=== PATIENT | female | born 1970 | race Caucasian/White ===

== ENCOUNTER 2018-05-12 07:36 | Emergency (ER) | payer OTHER ==
[~2018-05-12] VITALS: Ht 175.3 cm; Wt 79.4 kg
[2018-05-12] MEDS ORDERED: IBUPROFEN800 MG PO (07:57)
[2018-05-12] MEDS ORDERED: PREDNISONE20 MG PO (09:21)
== END 2018-05-12 09:34 | disposition home or self-care (01) ==
LOC: ED 07:36
DX: M25.562 Pain in left knee (principal); Z87.891 Personal history of nicotine dependence; Z90.49 Acquired absence of other specified parts of digestive tract; Z79.899 Other long term (current) drug therapy
CPT/HCPCS: 73560; 99283

== ENCOUNTER 2018-05-28 03:26 | Emergency (ER) | payer OTHER ==
[~2018-05-28] VITALS: Ht 175.3 cm; Wt 79.4 kg
[~2018-05-28 03:26] MED LIST: IBUPROFEN800 MG PO; PREDNISONE20 MG PO
--- OUTSIDE RECORDS SUMMARY | 2018-05-28 03:30 | XMS ---
PreManage Notification: PRIYA ALTAMIRANO Security Director Of Loss Prevention Events No recent Security Events currently on file CRITERIA MET - [facility] - 2 Visits in 30 Days CARE PROVIDERS There are no care providers on record at this time. Kailyn has no Care Guidelines for this patient. Lucas V[facility] (12 MO.) [facility] NOTE: Visits indicate total known visits. ED/C VISIT TRACKING (12 MO.) 05/28/2018 03:[address] [facility] [place] TYPE: Emergency COMPLAINT: - L KNEE PAIN/INJURY 05/12/2018 07:[address] [facility] [place] TYPE: Emergency COMPLAINT: - L KNEE PAIN DIAGNOSES: - Other care home (current) drug therapy - Acquired absence of other specified parts of digestive tract - Pain in left knee - Personal history of nicotine dependence INPATIENT VISIT TRACKING (12 MO.) No inpatient visits to display in this time frame [email or web address]
== END 2018-05-28 03:58 | disposition home or self-care (01) ==
LOC: ED 03:26
DX: S83.92XA Sprain of unspecified site of left knee, initial encounter (principal); Z87.891 Personal history of nicotine dependence; Z79.899 Other long term (current) drug therapy; X58.XXXA Exposure to other specified factors, initial encounter
CPT/HCPCS: 96372; 99283-25; J1885

== ENCOUNTER 2022-04-26 11:17 | Emergency (ER) | payer OTHER ==
[~2022-04-26] VITALS: Ht 175.3 cm; Wt 86.2 kg
[~2022-04-26 11:17] MED LIST changes: +DICLOFENAC SODI75 MG PO; +HYDROCODON-ACE1 EA11 PO
[2022-04-26] MEDS ORDERED: HYDROCHLOROTHIA25 MG PO (11:41)
[2022-04-26] MEDS ORDERED: LISINOPRIL20 MG PO (11:41)
[2022-04-26] MEDS ORDERED: DICLOFENAC SOD100 GM TOP (11:41)
[2022-04-26] MEDS ORDERED: DICLOFENAC SOD100 G1 TOP (11:42)
== END 2022-04-26 12:44 | disposition home or self-care (01) ==
LOC: ED 11:17
DX: S83.92XA Sprain of unspecified site of left knee, initial encounter (principal); I10 Essential (primary) hypertension; Z87.891 Personal history of nicotine dependence; Z79.899 Other long term (current) drug therapy; W00.0XXA Fall on same level due to ice and snow, initial encounter
CPT/HCPCS: 73560; 99283-25

== ENCOUNTER 2022-07-20 06:32 | Emergency (ER) | payer OTHER ==
[~2022-07-20] VITALS: Ht 172.7 cm; Wt 94.4 kg
[~2022-07-20 06:32] MED LIST changes: +DICLOFENAC SOD100 G1 TOP; +DICLOFENAC SOD100 GM TOP; +HYDROCHLOROTHIA25 MG PO; +LISINOPRIL20 MG PO
== END 2022-07-20 08:29 | disposition home or self-care (01) ==
LOC: ED 06:32
DX: S83.92XA Sprain of unspecified site of left knee, initial encounter (principal); X58.XXXA Exposure to other specified factors, initial encounter; I10 Essential (primary) hypertension; M19.90 Unspecified osteoarthritis, unspecified site; Z87.891 Personal history of nicotine dependence; Z79.899 Other long term (current) drug therapy
CPT/HCPCS: 73560; 96372; 99283-25; J1885

== ENCOUNTER 2022-12-04 20:37 | Inpatient (IN) | payer OTHER ==
[~2022-12-04] VITALS: Ht 172.7 cm; Wt 93.2 kg
--- OUTSIDE RECORDS SUMMARY | ~2022-12-04 | XMS | Continuity of Care Document ---
Demographics + + + | Address | [address] | | | [place] [address] | + + + | Preferred Language | Unknown | + + + | Marital Status | | + + + | Alevism Affiliation | Unknown | + + + | Race | White | + + + | Ethnic Group | Not or | + + + Author + + + | Author | [facility] | + + + | Organization | [facility] | + + + | Address | [address] | | | [place] [address] | + + + | Phone | | + + + Care Team Providers + + + + | Care Fruit And Vegetable Factory Worker Name | Role | Phone | + + + + Unavailable | Unavailable | + + + + Unavailable | Unavailable | + + + + Unavailable | Unavailable | + + + + Allergies No information. Encounters No information. Functional Status No information. Immunizations No information. Medications + + + + | date | description | facility | + + + + | 2022-04-14 00:00 | IBUPROFEN | [facility] | + + + + | 2022-04-26 00:00 | IBUPROFEN | [facility] | + + + + | 2022-07-20 00:00 | IBUPROFEN | [facility] | + + + + | 2022-04-26 00:00 | HYDROCHLOROTHIAZIDE | [facility] | + + + + | 2022-07-20 00:00 | HYDROCHLOROTHIAZIDE | [facility] | + + + + | 2018-05-12 00:00 | predniSONE | [facility] | + + + + | 2018-05-12 00:00 | predniSONE | [facility] | + + + + | 2022-04-26 00:00 | LISINOPRIL | [facility] | + + + + | 2022-07-20 00:00 | LISINOPRIL | [facility] | + + + + | 2022-04-26 00:00 | Diclofenac Sodium | [facility] | + + + + | 2022-07-20 00:00 | Diclofenac Sodium | [facility] | + + + + | 2022-04-26 00:00 | DICLOFENAC SODIUM | [facility] | + + + + | 2022-07-20 00:00 | DICLOFENAC SODIUM | [facility] | + + + + | 2018-08-15 00:00 | DICLOFENAC SODIUM | [facility] | + + + + | 2018-08-15 00:00 | HYDROCODONE | [facility] | | | BIT/ACETAMINOPHEN | | + + + + Problems + + + + | date | description | facility | + + + + | 2018-05-28 00:00 | Effusion of left knee | [facility] | + + + + | 2018-05-28 00:00 | Effusion of left knee | [facility] | + + + + | 2018-05-28 00:00 | Sprain of left knee | [facility] | + + + + | 2018-05-28 00:00 | Sprain of left knee | [facility] | + + + + | 2022-07-20 00:00 | Sprain of knee | [facility] | + + + + | 2022-10-27 07:37 | LIVER DISEASE, UNSPECIFIED | [facility] | | | | | + + + + | 2022-10-27 07:37 | ABNORMAL LEVELS OF OTHER | [facility] | | | SERUM ENZYMES | | + + + + Procedures No information. Results/Labs No information. Social History No information. Vital Signs + + + +---------+ | date | measurement | value | units | + + + +---------+ | 2022-04-26 00:00 | BMI | 28.1 | kg/m2 | + + + +---------+ | 2022-04-26 00:00 | BP_diastolic | 84 | mmHg | + + + +---------+ | 2022-04-26 00:00 | BP_systolic | 145 | mmHg | + + + +---------+ | 2022-04-26 00:00 | heart_rate | 78 | /min | + + + +---------+ | 2022-04-26 00:00 | height_metric | 175.26 | cm | + + + +---------+ | 2022-04-26 00:00 | height_standard | 69 | in | + + + +---------+ | 2022-04-26 00:00 | o2_saturation | 97 | % | + + + +---------+ | 2022-04-26 00:00 | respiration_rate | 16 | /min | + + + +---------+ | 2022-04-26 00:00 | temperature_metric | 37.5 | C | | | | | | + + + +---------+ | 2022-04-26 00:00 | | 99.5 | F | | | temperature_standar | | | | | d | | | + + + +---------+ | 2022-04-26 00:00 | weight_metric | 86.18 | kg | + + + +---------+ | 2022-04-26 00:00 | weight_standard | 189.99 | lb | + + + +---------+ | 2022-04-26 00:00 | weight_standard | 190 | lb | + + + +---------+ | 2022-07-20 00:00 | BMI | 31.6 | kg/m2 | + + + +---------+ | 2022-07-20 00:00 | BP_diastolic | 76 | mmHg | + + + +---------+ | 2022-07-20 00:00 | BP_systolic | 135 | mmHg | + + + +---------+ | 2022-07-20 00:00 | heart_rate | 76 | /min | + + + +---------+ | 2022-07-20 00:00 | height_metric | 172.72 | cm | + + + +---------+ | 2022-07-20 00:00 | height_standard | 68 | in | + + + +---------+ | 2022-07-20 00:00 | o2_saturation | 99 | % | + + + +---------+ | 2022-07-20 00:00 | respiration_rate | 16 | /min | + + + +---------+ | 2022-07-20 00:00 | temperature_metric | 36.94 | C | | | | | | + + + +---------+ | 2022-07-20 00:00 | | 98.5 | F | | | temperature_standar | | | | | d | | | + + + +---------+ | 2022-07-20 00:00 | weight_metric | 94.4 | kg | + + + +---------+ | 2022-07-20 00:00 | weight_standard | 208.12 | lb | + + + +---------+"
--- OUTSIDE RECORDS SUMMARY | ~2022-12-04 | XMS | Continuity of Care Document ---
Demographics + + + | Address | [address] | | | [place] [address] | + + + | Preferred Language | Unknown | + + + | Marital Status | | + + + | Shinto Affiliation | Unknown | + + + | Race | White | + + + | Ethnic Group | Not or | + + + Author + + + | Author | [facility] | + + + | Organization | [facility] | + + + | Address | [address] | | | [place] [address] | + + + | Phone | | + + + Care Team Providers + + + + | Care Dermatological Surgeon Name | Role | Phone | + [...] + | 2022-04-14 00:00 | IBUPROFEN | [facility] | + + + + | 2022-04-26 00:00 | IBUPROFEN | [facility] | + + + + | 2022-07-20 00:00 | IBUPROFEN | [facility] | + + + + | 2022-04-26 00:00 | HYDROCHLOROTHIAZIDE | [facility] | + + + + | 2022-07-20 00:00 | HYDROCHLOROTHIAZIDE | [facility] | + + + + | 2018-05-12 00:00 | predniSONE | [facility] | + + + + | 2018-05-12 00:00 | predniSONE | [facility] | + + + + | 2022-04-26 00:00 | LISINOPRIL | [facility] | + + + + | 2022-07-20 00:00 | LISINOPRIL | [facility] | + + + + | 2022-04-26 00:00 | Diclofenac Sodium | [facility] | + + + + | 2022-07-20 00:00 | Diclofenac Sodium | [facility] | + + + + | 2022-04-26 00:00 | DICLOFENAC SODIUM | [facility] | + + + + | 2022-07-20 00:00 | DICLOFENAC SODIUM | [facility] | + + + + | 2018-08-15 00:00 | DICLOFENAC SODIUM | [facility] | + + + + | 2018-08-15 00:00 | HYDROCODONE | [facility] | | | BIT/ACETAMINOPHEN | | + + + + Problems + + + + | date | description | facility | + + + + | 2018-05-28 00:00 | Effusion of left knee | [facility] | + + + + | 2018-05-28 00:00 | Effusion of left knee | [facility] | + + + + | 2018-05-28 00:00 | Sprain of left knee | [facility] | + + + + | 2018-05-28 00:00 | Sprain of left knee | [facility] | + + + + | 2022-07-20 00:00 | Sprain of knee | [facility] | + + + + | 2022-10-27 [...]
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
[2022-12-04] MEDS ORDERED: DULOXETINE HCL60 MG PO (21:00)
[2022-12-05 00:27] VITALS: BP 126/76
--- NOTE | 2022-12-05 01:41 | NUR ---
REPORT RECEIVED FROM COMPLAINT CLERK NABOR. BROUGHT TO MEDICAL FLOOR VIA STRETCHER BY THIS RN. pt AMBULATORY TO HOSPITAL BED. SBA, GAIT UNSTEADY DUE TO CIRO IN RIGHT LEG FROM FEMUR FRACTURE/SURGERY. pt DENIES MEDICAL EQUIPMENT USE AT HOME. CONCERNED WITH PITBULL WELL BEING AT HOME. ATTEMPTING TO CONTACT NEIGHBOR. ASSESSMENT COMPLETE. pt DENIES PAIN. ABD SOFT, NON-TENDER WITH PALPATION. SBA TO RESTROOM FOR VOID,UNMEASURED, pt BRUSHES TEETH THEN BACK TO BED. IVF INFUSING WNL. ORIENTATION TO ROOM PROVIDED. CALL LIGHT IN REACH.
[2022-12-05 01:51] VITALS: BP 129/71
--- NOTE | 2022-12-05 02:18 | NUR ---
IN ROOM FOR MEDICATION ADMINISTRATION. VSS. IV MEDICATION ADMINISTERED. pt COMPLAINS OF 8/10 SHARP PAIN THAT COMES AND GOES. "WARM PACK HELPS" IN PLACE. PRN PAIN MEDICATION ADMINSITERED. IVF INFUSING WNL. CALL LIGHT IN REACH.
[2022-12-05 05:41] VITALS: BP 110/63
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
--- NOTE | 2022-12-05 06:00 | NUR ---
VP CARDIOVASCULAR OUT OF pt ROOM. pt AWAKE, SBA TO RESTROOM FOR VOID AND BACK TO BED. IVF INFUSING WNL. ASSESSMENT COMPLETE. pt RATES PAIN 8/10 WHEN SHARP PAIN HITS INTERMITTENTLY IN RLQ. REPORTS CONSTANT DULL ACHE. PRN PAIN MEDICATION ADMINISTERED IV. SCDS ON. WARM PACK PROVIDED FOR ABDOMEN, ICE PACK FOR EYES. NOTED TO BE SWOLLEN SINCE ARRIVAL TO HOSPITAL. CALL LIGHT IN REACH.
--- NOTE | 2022-12-05 07:00 | NUR ---
WIPE DOWN COMPLETE BY pt AND LINE PREP COOKMARLENA RO. IV SITE FLUSHED AND LR WITH SURGERY TUBING CONNECTED. pt OFF FLOOR WITH SURGERY MARLENA JIMENEZ.
[2022-12-05 11:01] VITALS: BP 118/67
--- NOTE | 2022-12-05 11:15 | NUR ---
12/05/22 1115 Mattie Rodrigues 1001 PT ARRIVED IN PACU SLEEPY. ICE TO ABD. 1012 C/O ABD PAIN 9/10. FENTANYL 50MCG GIVEN IVP. 1020 NO CHANGE IN PAIN LEVEL. FENTANYL 50MCG GIVEN IVP. 1025 PT C/O FEELING WARM. BLANKETS REMOVED. 1028 PAIN DOWN TO 6/10. FENTANYL 50MCG GIVEN IVP. 1030 ANESTHESIA AT BEDSIDE. NO NEW ORDERS. 1038 NO CHANGE IN PAIN LEVEL. FENTANYL 50MCG GIVEN IVP. 1045 SNORING. REU. 1101 PAIN DOWN TO 4/10. TO ROOM 115. REPORT GIVEN TO RN'S AND PT'S FAMILY OVER THE PHONE. BED PLUGGED IN.
--- NOTE | 2022-12-05 12:29 | NUR ---
PT IS CURRENTLY EATING LIQUID DIET. ASKED HOW PAIN WAS AND PT STATED THAT IT HAS GONE DOWN FROM 6 TO 4. BLINDS LOWERED UPON REQUEST CALL LIGHT WITHIN REACH.
--- NOTE | 2022-12-05 13:04 | NUR ---
PT HAD GONE TO SURGERY. UNABLE TO VISIT. PRAYED FOR SUCCESSFUL PROCEDURE AND ONGOING HEALING.
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
[2022-12-05 14:14] VITALS: BP 135/69
--- NOTE | 2022-12-05 14:39 | NUR ---
pt was talking with bilingual case manager. took vitals and emptied rodas and senthil drain. took vitals and gave her bp med. patient was on a call and after she got off she got severe anxiety and requested a chaplan to pray with her. call light within reach.
--- NOTE | 2022-12-05 15:36 | NUR ---
PATIENT REQUESTED TO HAVE DIFFERENT NURSES.
--- NOTE | 2022-12-05 16:16 | NUR ---
pt complaining that dilaudid given was not working and requested to speak to the dr julian. called dr julian and explained pt concern and situation. gave verbal orders to change dilaudid iv to 1-3 mg and to change norco po to 10 mg. Patient was told of 's orders and when asked her pain rating she states she was at a 10. pt given 20 mg of norco and will reassess in 30 minutes. pt currently talking with kar.
--- NOTE | 2022-12-05 16:31 | NUR ---
PT WAS AGITATED WHEN I CAME IN THE ROOM. PT WAS WORRIED ABOUT HER DOG, HER CARE. PT EXPRESSED CONCERN ABOUT NOT KNOWING WHY WHE WAS IN SO MUCH PAIN AND NOT FEELING SAFE. LISTENED TO PT ABOUT FEARS. PRAYED WITH PT. PT WAS CALM WHEN I LEFT.
--- NOTE | 2022-12-05 18:32 | EKG ---
[facility] [address] [place] [address] Signed Normal sinus rhythm Minimal voltage criteria for LVH, may be normal variant Abnormal ECG No previous ECGs available Confirmed by MACIE HALL MD ([id number]) on 12/05/2022 6:32:34 PM Electronically Signed By: MACIE HALL 12/05/221831 PATIENT NAME: PRIYA ALTAMIRANO Electrocardiogram DATE OF : 70 PHYSICIAN: MACIE HALL REPORT #: [id number] REPORT IS CONFIDENTIAL AND NOT TO BE RELEASED WITHOUT AUTHORIZATION
--- NOTE | 2022-12-05 19:10 | NUR ---
REPORT RECEIVED FROM MARLENA CONLEY; PT IN BED, NO NEEDS AT THIS TIME.
[2022-12-05 19:57] VITALS: BP 142/70
--- NOTE | 2022-12-05 20:32 | NUR ---
pt RESTING IN BED AWAKE, DROWSY. VSS. SPO2 100% WITH 1L OXYGEN BY NC IN PLACE. TITRATED TO ROOM AIR, SPO2 REMAINS 100%. CPOX PLACED. PRN NORCO ADMINISTERED FOR 8/10 PAIN IN RLQ. ICE PACK PROVIDED. WARM PACK PROVIDED FOR LOWER BACK. pt INSTRUCTED TO NOT PLACE HEAT ON INCISION, VERBALIZES UNDERSTANDING. ICE WATER REFILLED AND IN REACH. DRESSING CDI. COSME DRAIN EMPTIED, TUBING STRIPPED, 15 MLS SANGUINOUS DRAINAGE. SCDS IN PLACE. ODELL EMTPIED. IV SITE FLUSHED WNL, IV ANTIBIOTIC INFUSING ORDERED. CALL LIGHT WITHIN REACH.
--- NOTE | 2022-12-05 21:11 | NUR ---
ASSESSMENT COMPLETE, SECURMENT DEVICE FOR ODELL IN PLACE. PT TEARFUL, QUESTIONS ANSWERED. USING PILLOW FOR SUPPORT. SCD'S IN PLACE, RA. DRINKING WATER, ATE SOME JELLO, STATES SHE IS HUNGRY. PLANS TO WATCH TV, ALL PERSONAL SUPPLIES WITHIN REACH.
[2022-12-06] VITALS (8 sets, daily range): BP systolic 156–186; BP diastolic 73–105
--- NOTE | 2022-12-06 00:13 | NUR ---
PT REQUESTED AND RECEIVED PAIN MEDICATION. STATES THAT THE PAIN WOKE HER UP, WAS A "10/10" BUT ONCE TIME WENT BY, IT DECREASED. REQUESTED AND RECEIVED SOME SOMETHING TO DRINK. FRESH ICE GIVEN. MID LINE DRESSING C/D/I, COSME RIGHT, WITH OLD DRAINAGE. DID COMPLAIN OF SOME NAUSEA, BUT HAS RESOLVED. ODELL WITH SANA URINE,
--- NOTE | 2022-12-06 02:35 | NUR ---
IN pt ROOM FOR MEDICATION ADMINISTRATION. VSS. IV SITE FLUSHED WNL. IV ANTIBIOTIC INFUSING ORDERED. ASSESSMENT COMPLETE. MIDLINE DRESSING CDI. COSME DRAIN EMPTIED, 25 MLS SANGUINOUS DRAINGE. BOWEL TONES ACTIVE. ABD SOFT, TENDER WITH PALPATION PER pt. RATES PAIN 4/10 AT THIS TIME. ODELL EMPTIED. CALL LIGHT IN REACH.
--- NOTE | 2022-12-06 04:42 | NUR ---
pt RESTING IN BED WITH EYES CLOSED. IVF INFUSING WNL. NO DISTRESS NOTED.
--- NOTE | 2022-12-06 05:36 | NUR ---
CABLE PULLER OUT OF ROOM, NOTIFIES THAT pt REQUESTING PAIN MEDICATION. pt STATES OCCASIONAL SHARP PAIN, 8/10 RLQ THEN DIFFUSE BURNING THROUGHOUT ABDOMEN. PRN PAIN MEDICATION ADMINISTERED. ICE PACK PROVIDED. VSS. ODELL EMPTIED. SMALL AMT SANGUINOUS DRAINAGE IN COSME BULB. CALL LIGHT IN REACH. ICE WATER REFILLED.
--- NOTE | 2022-12-06 09:10 | NUR ---
PT RECIEVED ANTIBIOTICS AND GIVEN ICE PACK REQUESTED ALSO SHIFTED UP IN BED AND PILLOWS UNNDER HER FEET FOR COMFORT. CALL LIGHT WITHIN REACH.
--- NOTE | 2022-12-06 09:35 | OR ---
[facility] [address] [place], [place] [address] Signed DATE OF OPERATION: 12/05/2022 SURGEON: Bradford Velázquez MD PREOPERATIVE DIAGNOSIS: Acute appendicitis. POSTOPERATIVE DIAGNOSIS: Acute suppurative appendicitis. PROCEDURE: Laparoscopic converted to open appendectomy. ESTIMATED BLOOD LOSS: 50 mL. FINDINGS: Rachael indeed had her retrocecal appendix. There was an inflammatory mass densely adherent to the cecum as well as to the retroperitoneum. Therefore, we had to convert from laparoscopic to open. We had to have an additional nurse scrub in and we had to use very slow meticulous dissection and cautery to separate the appendix and the mesoappendix from the cecum. INDICATIONS: Rachael is a 52-year-old female, who tells me she has actually had 3-1/2 days of right lower quadrant abdominal pain. It was getting progressively worse. She lives here in town alone. She does not drive. She usually has to walk or take the bus. She finally called the ambulance to have her come to the emergency room late last night. I saw her late last night in the emergency room. Actually I had another case to go and do at that time. I could see that she had an inflamed mass around her appendix. No obvious fluid collection. She was tender in that area, but she was not systemically ill or toxic. We went ahead and admitted overnight for hydration. We corrected the potassium and then magnesium this morning as well. She was given antibiotics in addition. I met with her in the emergency room and I also met with her this morning. I brought a brochure from my office with respect to appendicitis. We looked at it together page by page. She understands the location and function of the appendix. She understands laparoscopic versus open appendectomy. There is risk to surgery including, but not limited to bleeding, infection, scarring, change in contour of the skin, damage to bowel, appendiceal stump leak, postoperative intra-abdominal abscess, incisional hernias and other unforeseen comorbidities. She had expressed understanding and wished to proceed. Electronically Signed By: BRADFORD VELÁZQUEZ MD 12/06/22 0935 PATIENT NAME: RACHAEL ALTAMIRANO OPERATIVE REPORT DATE OF : 70 REPORT #: [id number] PHYSICIAN: BRADFORD VELÁZQUEZ MD PCP: NETTE ERNST PA-C REPORT IS CONFIDENTIAL AND NOT TO BE RELEASED WITHOUT AUTHORIZATION [facility] [address] [place], [place] [address] Signed PROCEDURE NOTE: Rachael was taken into our operating room and placed in the supine position under general endotracheal tube anesthesia. She was already on preoperative antibiotics. Her morning antibiotics came later in the case and those were hung while we were operating. She already had subcutaneous Lovenox. SCDs were in place. A Chery catheter had been inserted with return of moderately butch but otherwise clear urine. The urine continued to clear as we went through the case. She was then prepped and draped in the usual sterile fashion. I placed my trocar just above the umbilicus through a vertical midline incision. We could see the cecum and the proximal right colon were adherent to the lateral abdominal wall. I came down bluntly after we placed our suprapubic trocar site. However, we ran into this dense inflammatory mass and we could not separate from the retroperitoneum. We therefore had to convert to open. We simply extended our incision inferiorly past the umbilicus. Incision is a little wider than my hand. An additional nurse had to scrub in. We were able to use cautery and blunt finger dissection and rolled the cecum towards the midline along with the distal small bowel. It took some cautery to separate it from the retroperitoneum as well. We found that her cecum was unbelievably adherent to the cecum posteriorly. We were able to separate the base of the cecum and we tied it off between Pean clamps and 0 Vicryl ties. We had used very slow judicious cautery with finger-fracture technique to come through the mesoappendix. Several areas had to be oversewn with 0-Vicryl suture for hemostasis. We eventually had the entire appendix free. We did bump into the appendix with our cautery on one side. We went ahead and placed an 0 Vicryl suture at the base of the appendix to help our pathologist. It looks like it may have ruptured against the retroperitoneum, although there was just a small amount of pus. After this, the abdomen was irrigated and suctioned out until clear. We decided to place a #10 flat Oz drain underneath the cecum and to bring it out through the right mid quadrant of the abdomen. It was held in place with a 2-0 nylon suture. We let the cecum back down over this area along with the small bowel. We brought the omentum back down over the small bowel. We closed the midline fascia with interrupted [id number] and simple #1 PDS sutures. Local anesthetic was injected in the abdominal wall and subcutaneous tissues. The wound was irrigated and suctioned out until clear. We brought the dermis back together with interrupted 3-0 subcuticular Monocryl sutures. The skin edges were reapproximated with mira including the 5 mm suprapubic trocar site. Dry gauze and tape was then applied. After this, our anesthesia provider provided bilateral TAP blocks. Bradford Velázquez MD Electronically Signed By: BRADFORD VELÁZQUEZ MD 12/06/22 0935 PATIENT NAME: RACHAEL ALTAMIRANO OPERATIVE REPORT DATE OF : 70 REPORT #: [id number] PHYSICIAN: BRADFORD VELÁZQUEZ MD PCP: NETTE ERNST PA-C REPORT IS CONFIDENTIAL AND NOT TO BE RELEASED WITHOUT AUTHORIZATION [address] [place], [place] [address] Signed ALB/MODL /[id number] cc: ROSA Yoon MD Copies: BRADFORD VELÁZQUEZ MD ~ Electronically Signed By: BRADFORD VELÁZQUEZ MD 12/06/22 0935 PATIENT NAME: RACHAEL ALTAMIRANO OPERATIVE REPORT DATE OF : 70 REPORT #: [id number] PHYSICIAN: BRADFORD VELÁZQUEZ MD PCP: NETTE ERNST PA-C REPORT IS CONFIDENTIAL AND NOT TO BE RELEASED WITHOUT AUTHORIZATION
--- NOTE | 2022-12-06 10:07 | NUR ---
WAS IN ROOM SPEAKING WITH PATIENT. VERBALLY STATED TO REMOVE ODELL AND TO REMOVE BANDAGE AROUND COSME DRAIN AND STATED THAT PT CAN TAKE A SHOWER, GET UP AND MOVE AROUND. pT AT THIS TIME IS REQUESTING PAIN MED AND STATE THAT HER PAIN LEVEL IS AT 7. 2 TABS OF NORCO GIVEN. CALL LIGHT WITHIN REACH
--- NOTE | 2022-12-06 10:30 | NUR ---
PT WAS AWAKE AND ALERT COMPLAINING OF PAIN WHILE HOLDING ABDOMEN. PT REQUESTING PAIN MED, DILAUDID WAS GIVEN. COSME DRAIN STILL DRAINING SANGUINOUS FLUID. CALL LIGHT WITHIN REACH.
--- NOTE | 2022-12-06 10:32 | NUR ---
SPOKE TO PATIENT ABOUT HER DISCHARGE PLAN. PER MD PATIENT WILL BE HERE ANOTHER 5-7 DAYS. PATIENT PLANS TO GO BACK TO HER TRAILER WHEN MEDICALLY STABLE. PATIENT HAS NO DISCHARGE ISSUES AT THIS TIME. PATIENT ENCOURAGED TO NOTIFY CASE MANAGEMENT FOR ANY ISSUE OR CONCERNS.
--- NOTE | 2022-12-06 11:40 | NUR ---
PT IN BED. STATED STILL IN PAIN BUT WAS HOPEFUL PAIN MEDICATIONS WOULD BEGING GIVING COMFORT SOON. TALKED OF DOG BEING HOME ALONE. STATED SHE WAS GETTING IT FIGURED OUT. CONSENTED TO PRAYER. PRAYED FOR ONGOING HEALING.
--- NOTE | 2022-12-06 11:47 | NUR ---
PT CALLED FOR INCREASED PAIN. ASSESSED PT HAVING PAIN IN WAVES. EXPLAINED IT MAY BE GAS AND AMB WOULD HELP. REMOVED ODELL WO DIFF. PT ASSISTED TO STAND AT BEDSIDE FOR A MINUTE. BACK TO BED. PT HAVING EPISODES OF CRYING OUT, "FEELS LIKE IM BEING CUT FROM THE INSIDE BELOW THE BEELY BUTTON" ASSESSED BELLY. SOFT AND NON DISTENDED. INCISION WELL APPROX. WITH NO DRAINAGE OR REDNESS NOTED. 1MG DILAUDID WAS ADMINISTERED AND WILL TRY AMBULATION AFTER A REST PERIOD.
--- NOTE | 2022-12-06 12:15 | NUR ---
patient is complaining of discomfort. dilaudid given at 1140 so i asessed pain level pt stated that there were sharp pains at 10 but then after they subside the pain is between 6 and 7. pt is alert awake and oriented. call light within reach
[2022-12-06] MEDS ORDERED: PRENATAL 19 TA1 EAC2 PO (13:17)
[2022-12-06] MEDS ORDERED: MELATONIN5 M2 PO (13:17)
[2022-12-06] MEDS ORDERED: HAIR SKIN NAIL1 EACH PO (13:18)
--- NOTE | 2022-12-06 13:18 | NUR ---
MED REC COMPLETE
--- NOTE | 2022-12-06 14:40 | NUR ---
PATIENT CALLED TO USE RESTROOM. PATIENT UP TO BATHROOM, SBA FWW. PATIENT VERY PAINFUL DURING AMBULATION. PATIENT NOW BACK TO SITTING UP IN BED. VITALS AND I&O'S CHARTED. CALL LIGHT IN REACH. NO FURTHER NEEDS AT THIS TIME.
--- NOTE | 2022-12-06 14:55 | NUR ---
RETOOK BLOOD PRESSURE AFTER PATIENT RESTED FROM MOVING IN ROOM, BP STILL HIGH. RN NOTIFIED.
--- NOTE | 2022-12-06 15:55 | NUR ---
patient is complaining of pain. pt blood pressure systolic has increased during shift from 142's to 180's currently taken 3 times and was systolic in the 180's pt states that pain is getting worse and the pain is sharp and intolerable. i suggested her to lay on her left side to help with gas build up. pt tried and said it makes it worse. tried to ambulate pt sat up and then stood up but when prompted to walk she refused and wanted to lay back down. pt is currently laying in bed crying and shaking. Dr Acuna called and verbally ordered toradol to assist with pain. Dr Magdaleno called about the high blood pressure and verbally ordered hydrazaline. patient is currently laying in bed . call light within reach
--- NOTE | 2022-12-06 16:45 | NUR ---
Pt is currently laying in bed and states that she is feeling a little better. states that she is still in pain but not as much. pt repositioned. call light within reach
--- NOTE | 2022-12-06 17:40 | NUR ---
pt had 400 ml of emesis. staes that she was feeling nauseous. Zofran was given. pt is currently resting. call light within reach.
--- NOTE | 2022-12-06 18:44 | NUR ---
IN TO TAKE PATIENT TO BATHROOM. PATIENT UP TO BATHROOM, 1PA FWW. PATIENT TOLERATED WELL. PATIENT THEN AMBULATED 1 1/2 LAPS IN HALLWAY, SBA FWW AND TOLERATED AMBULATION WELL. PATIENT NOW BACK TO SITTING UP IN BED. CALL LIGHT IN REACH. NO FURTHER NEEDS AT THIS TIME.
--- NOTE | 2022-12-06 19:56 | NUR ---
REPORT RECEIVED FROM MARLENA BURNS AND MARLENA CONLEY. pt RESTING IN BED AWAKE. pt ITCHING LEGS AND BODY. DENIES ANY PAIN. IVF INFUSING WNL. PHONE CALL TO , ORDER RECEIVED FOR PRN BENADRYL, REPEATED BACK TO VERIFY ORDER. EMAR UPDATED. CALL LIGHT IN REACH.
--- NOTE | 2022-12-06 21:16 | NUR ---
PT AWAKE RESTING IN BED. RATES PAIN 4/10 AT REST, 8/10 WHEN SHARP PAIN COMES. PRN PAIN MEDICATION ADMINISTERED. PRN MEDICATION FOR PRURITIS ADMINISTERED. IV NOT PATENT LEFT HAND. NEW IV STARTED, 22 GAUGE IN RIGHT HAND. pt TOLERATED WELL. IV ANTIBIOTIC INFUSING WNL AT THIS TIME. ASSESSMENT COMPLETE. COSME EMPTIED, 38 MLS SANGUINOUS DRAINGE. BOWEL TONES ACTIVE, ABD SOFT, TENDER. INCISION CDI WITH MEG. BUZZ SOLIS ASSISTING pt TO RESTROOM FOR VOID.
--- NOTE | 2022-12-06 23:15 | NUR ---
@2305 new bag iv fluids scanned, and infusing. Pt asked if she could lay on her left side, question answered. Iv infusing per order. Pt laying on left side, encouraged left hand on pillow to keep patent.
[2022-12-07] VITALS (8 sets, daily range): BP systolic 129–194; BP diastolic 78–113
--- NOTE | 2022-12-07 00:20 | NUR ---
CALL LIGHT ANSWERED. pt REQUESTING PAIN MEDICATION. STATES "ITS A LITTLE BETTER" pt DROWSY. RATES PAIN 6/10 AT INCISION. DESCRIBES "PRESSURE". PRN PAIN MEDICATIONS ADMINISTERED. IV ANTIBIOTIC INFUSION COMPLETE. IVF INFUSING WNL ORDERED. CALL LIGHT IN REACH.
--- NOTE | 2022-12-07 02:15 | NUR ---
CALL LIGHT ANSWERED. SBA TO RESTROOM FOR VOID AND BACK TO BED. VS COMPLETE. SCHEDULED BP MEDICATION ADMINSITERED. IV ANTIBIOTIC NOW INFUSING WNL ORDERED. ASSESSMENT COMPLETE. COSME DRAIN EMPTIED, SS DRAINAGE. pt DENIES PAIN AT THIS TIME. CALL LIGHT IN REACH. LIGHTS OFF IN ROOM.
--- NOTE | 2022-12-07 06:01 | NUR ---
PT COMPLAINED TO ELECTRIC METER TESTER HELPER OF PAIN. 10/22, ABD PAIN. MED WITH PRN MEDICATION. MOSTLY SLEEPY, SAYS THAT WALKING TO THE BATHROOM WOKE UP THE PAIN. PLANS TO SLEEP LONGER. BLINDS CLOSED PER PT CHOICE
--- NOTE | 2022-12-07 06:03 | NUR ---
PRIMARY RN NOTIFIED RE BP. WE'LL RE CHECKED AFTER MEDS PER RN.
--- NOTE | 2022-12-07 06:41 | NUR ---
PT COMPLAINED NAUSEA, MED WITH ZOFRAN. OFFERED CY, SHE ACCEPTED. ENCOURAGED PT TO AMBULATE AT LEAST 4 LAPS TODAY. FRESH ICE WATER GIVEN.
--- NOTE | 2022-12-07 07:00 | NUR ---
recieved report from night supervisor nurse. pt is currently resting in room.
--- NOTE | 2022-12-07 07:40 | NUR ---
PT RESTING IN BED, DROWSY. PRN HYDRALAZINE ADMINISTERED FOR HTN. pt CONTINUES TO COMPLAIN OF FEELING NAUSEOUS, OVERALL "CRUMMY". DENIES NEEDS AT THIS TIME. NO COMPLAINTS OF ABDOMINAL PAIN. CALL LIGHT IN REACH. IVF INFUSING WNL.
--- NOTE | 2022-12-07 08:30 | NUR ---
PT IS CURRENTLY IN AGONIZING PAIN. ASKED TO GO TO RESTROOM. WHILE IN RESTROOM HAD 25 ML OF EMESIS. ASSISTED BACK TO BED. ASKED WHAT HER CURRENT PAIN WAS AND SHE STATED IT WAS AT AN 8. TORADOL GIVEN. CALL LIGHT WITHIN REACH.
--- NOTE | 2022-12-07 09:00 | NUR ---
DR HALL CAME AND VERBALLY ORDERED0 .2 CATAPRES TO ASSIST WITH PT BLOOD PRESSURE.
--- NOTE | 2022-12-07 10:00 | NUR ---
Spoke with pt and she denies needs. Per Dr. Acuna, pt will remain several more days.
--- NOTE | 2022-12-07 10:02 | NUR ---
WHEN ASESSING PT PAIN, PT STATES THAT PAIN IS NOW A 5. PATIENT LOOKS SLEEPY BUT IS RESPONDING TO QUESTIONS. CALLED AND SPOKE TO PHARMACY ABOUT MEDS AND THEY CONFIRMED IT WAS SAFE TO RUN BOTH MAXIPIME AND FLAGYL SIMULTANEOUSLY. PATIENT IS GOING BACK TO SLEEP, CALL LIGHT IS WITHIN REACH
--- NOTE | 2022-12-07 11:05 | PATH ---
[facility] [address] [place], [place] [address] Signed SPECIMEN(S): A APPENDIX SPECIMEN SOURCE: A. APPENDIX CLINICAL HISTORY: Ruptured appendix. FINAL PATHOLOGIC DIAGNOSIS: Appendix, appendectomy: - Acute suppurative appendicitis and periappenicitis. NA:cml:C2NR MICROSCOPIC EXAMINATION: Histologic sections of all submitted blocks are examined by light microscopy. These findings, together with the gross examination, support the pathologic diagnosis. GROSS DESCRIPTION: The specimen, labeled and designated "Altamirano, appendix," is received in formalin and consists of: Specimen: Appendix with mesoappendix. Dimensions: 4.5 x 0.8 to 1.5 cm. Serosa: Dark red and congested. Defect: Transmural defect that measure 0.6 x 0.1 cm. Inking: Staple line is inked black. Fecalith: Not grossly identified. Additional: Specimen is oriented with a stitch at the base of appendix. Ctc Operator sections are submitted in (A1). JS (under the direct supervision of a pathologist) The Gross Description was prepared using a voice recognition system. The report was reviewed for accuracy; however, sound-alike word errors, addition and/or deletions may occur. If there is any question about this report, please contact Client Services. PERFORMING LABORATORY: Technical component was performed by [facility], [address] [place] [id number] (CLIA# [id number]). Professional interpretation was performed by [facility], [address] [place] [id number] (CLIA# [id number]). PATIENT NAME: PRIYA ALTAMIRANO PATHOLOGY DATE OF : 70 REPORT #: [id number] PHYSICIAN: [facility] PCP: NETTE ERNST PA-C REPORT IS CONFIDENTIAL AND NOT TO BE RELEASED WITHOUT AUTHORIZATION [address] [place] [address] Signed Diagnostician: Jasmine James MD Pathologist Electronically Signed 12/07/2022 Copies: ~ PATIENT NAME: PRIYA ALTAMIRANO PATHOLOGY DATE OF : 70 REPORT #: [id number] PHYSICIAN: [facility] PCP: NETTE ERNST PA-C REPORT IS CONFIDENTIAL AND NOT TO BE RELEASED WITHOUT AUTHORIZATION
--- NOTE | 2022-12-07 11:14 | NUR ---
Pt recieved catapres patch for blood pressure. patients pain is subsiding for now
--- NOTE | 2022-12-07 12:01 | NUR ---
PT APPEARED TO BE SLEEPING. DID NOT DISTURB. PRAYED SILENTLY FOR HEALING AND COMFORT.
--- NOTE | 2022-12-07 12:52 | NUR ---
PT ENCOURAGED TO WALK. WALKED AROUND FLOOR TWICE AND IT WENT WELL. CURRENTLY BACK IN BED AND GIVEN ICE CHIPS. CALL LIGHT WITHIN REACH
--- NOTE | 2022-12-07 15:06 | NUR ---
PT IS CURRENTLY SLEEPING. I WOKE HER UP TO ASK ABOUT HER PAIN ANS SHE STATED THAT IT IS CURRENTLY AT 3 AND WENT BACK TO SLEEP. PAIN GOAL IS REACHED. CALL LIGHT WITHIN REACH
--- NOTE | 2022-12-07 16:04 | NUR ---
PATIENT COMPLAINING OF HEADACHE, CALLED DR HALL TO SEE IF GIVING HER TYLENOL WAS OK SINCE HE HAD HER ON NPO. HE STATED ITS OK THAT SHE HAS SIPS FOR ORAL MEDS.
--- NOTE | 2022-12-07 17:53 | NUR ---
PT WENT FOR WALK AROUND [facility] TWICE. TOLERATED WELL AND IS FEELING BETTER. PATIENT IS CURRENTLY IN BED SMILING AND WATCHING TV. CALL LIGHT WITHIN REACH
--- NOTE | 2022-12-07 19:40 | NUR ---
pt assesed, gave toradol for pain. No complaints otherwise
[2022-12-08] VITALS (8 sets, daily range): BP systolic 134–162; BP diastolic 75–104
--- NOTE | 2022-12-08 02:45 | NUR ---
CALL LIGHT ANSWERED, IV PUMP ALARMING. ISSUE RESOLVED. IV FLUIDS INFUSING WNL. CALL LIGHT IN REACH.
--- NOTE | 2022-12-08 05:28 | NUR ---
Walked around the unit 2 laps,pt tolerated well. Passed gas while walking. had some intense pain after walking, toredol and norco helped.
--- NOTE | 2022-12-08 07:50 | NUR ---
REVEIVED REPORT FROM PENCIL SORTER RN. PT AWAKE IN BED. PT REPORTS PRN NORCO WAS EFFECTIVE. NO FURTHER NEEDS VOICED AT THE MOMENT. ASSESSMENT PERFORMED. CALL LIGHT WITHIN REACH.
--- NOTE | 2022-12-08 08:02 | NUR ---
THIS BARN WORKER HAS TAKEN OVER CARES FROM SAFETY REPRESENTATIVE BARN WORKER. PT UP TO THE BATHROOM USING FWW AND SBA. PT DID NOT NEED ASSISTANCE WITH ORAL CARES. PT BACK TO BED AND RESTING NOW. NO OTHER NEEDS AT THIS TIME. CALL LIGHT WITHIN REACH.
--- NOTE | 2022-12-08 10:26 | NUR ---
ROUNDED ON PT. PT GIVEN LEMON ICE. NO OTHER CONCERNS STATED. CALL LIGHT WITHIN REACH.
--- NOTE | 2022-12-08 12:45 | NUR ---
ASSISTED PT TO THE BATHROOM. PT WAS STEADY ON FEET AND USED FWW. NO FURTHER NEEDS VOICED BY THE PATIENT. PT STATES SHE WOULD LIKE TO GO FOR A WALK WHEN SHE IS FINISHED WITH HER LUNCH. CALL LIGHT WITHIN REACH.
--- NOTE | 2022-12-08 13:35 | NUR ---
PT SITTING UP IN BED EATING BREAKFAST. STATED VERY TIRED AND TIRED OF PAIN. CONSENTED TO PRAYER. PRAYED FOR ONGOING HEALING, PATIENCE, AND PERSEVERENCE.
--- NOTE | 2022-12-08 15:53 | NUR ---
ROUNDED ON PT. WALKED WITH PATIENT IN [place] AND ASSISTED TO BATHROOM. PT REPORTING SEVERE SHOOTING PAIN IN ABDOMEN. GAVE PRN MOTRIN AND NORCO. EDUCATED PT ON MOTRIN VS TORADOL. NO FURTHER QUESTIONS OR NEEDS VOICED. CALL LIGHT WITHIN REACH.
--- NOTE | 2022-12-08 18:45 | NUR ---
ROUNDED ON PT. WALKED WITH PATIENT IN [place]. PT REPORTS MAIN MEDICATION HAS BEEN EFFECTIVE. PATIENT BACK IN BED WITH CALL LIGHT IN REACH. NO FURTHER NEEDS VOICED.
--- NOTE | 2022-12-08 19:30 | NUR ---
PT is sitting in bed, no complains of pain.
--- NOTE | 2022-12-08 21:20 | NUR ---
CALL LIGHT ANSWERED, IV PUMP ALARMING. ISSUE RESOLVED. IV SITE WNL, FLUIDS INFUSING WNL. NO ADDITIONAL NEEDS OR CONCERNS, CALL LIGHT IN REACH.
--- NOTE | 2022-12-08 22:16 | NUR ---
IN ROOM TO GIVE SCHEDULED BP MEDICATION, PRN MOTRIN, AND 2200 IV ABX PER REQUEST OF PRIMARY RN. pt AWAKE AND INTERACTIVE WITH RN AND APPRECIATIVE OF CARES. VSS. IV SITES X2 WNL, IV ABX INFUSING DIRECTED. pt EDUCATED IV SITE AND VERBALIZES UNDERSTANDING TO CALL IF PAIN/IRRITATION TO IV SITES OCCURS. ROOM TIDIED AND CALL LIGHT IN REACH.
[2022-12-09 06:04] VITALS: BP 156/89
--- NOTE | 2022-12-09 07:15 | NUR ---
RECEIVED REPORT FROM FEEDER CATCHER RN. PT AWAKE AT BEDSIDE EATING HER CLEAR LIQUID TRAY. PT DENIES FURTHER NEEDS. CALL LIGHT WITHIN REACH.
--- NOTE | 2022-12-09 08:30 | NUR ---
ENTERED PT ROOM TO PERFORM ASSESSMENT AND PASS MEDICATIONS. MD AT BEDSIDE WELL. MD DISCUSSED WITH PATIENT PLAN OF CARE. PT TO BE ADVANCED TO FULL LIQUID DIET AND GO HOME TODAY IF SHE FEELS COMFORTABLE AND TOLERATES FULL LIQUIDS OR TOMORROW MORNING. PATIENT VOICED UNDERSTANDING. NO FURTHER NEEDS VOICED AT THE MOMENT. CALL LIGHT WITHIN REACH.
[2022-12-09 08:46] VITALS: BP 162/84
--- NOTE | 2022-12-09 09:45 | NUR ---
ENTERED PT ROOM TO FIND PATIENT TEARFUL. PT STATED SHE WAS WORRIED ABOUT HER DOG BEING ALONE AT HOME. PT STATED SHE WAS ABLE TO TOLERATE THE FULL LIQUIDS AND WANTED TO BE DISCHARGED TODAY SHE FEELS SHE CAN MANAGE HER PAIN AT HOME. TOLD PATIENT I WOULD DISCUSS THIS MATTER WITH THE MD AND VOICE HER CONCERNS.
--- NOTE | 2022-12-09 11:00 | NUR ---
VANCE DOOLEY ABOUT PT WISHED TO BE DISCHARGED TODAY. WAS TOLD PATIENT CAN GO HOME TOMORROW AND IF SHE CHOOSES TO GO HOME, IT WOULD BE CONSIDERED AMA. DISCUSSED WITH PATIENT AND PATIENT AGREED TO STAY UNTIL TOMORROW MORNING. PT STATED FRUSHTRATION WITH NEIGHBORS AND FRIENDS RELATED TO THE CARE OF HER DOG. PROVIDED EMOTIONAL SUPPORT AND ENCOURAGED PATIENT TO LIMIT CONTACT WITH FRIENDS AND NEIGHBORS UNTIL SHE IS DISCHARGED. PT AGREED TO PLAN STATING HER FRIENDS AND NEIGHBORS ARE CAUSING HER MORE STRESS BY GIVING HER DIFFERENT STORIES ON THE CARE OF HER DOG.
--- NOTE | 2022-12-09 11:56 | NUR ---
PT TOOK PHONE CALL SHORTLY AFTER I ENTERED ROOM. I EXITED ROOM AND PRAYED SILENT PRAYER FOR HEALING.
[2022-12-09 14:11] VITALS: BP 173/87
--- NOTE | 2022-12-09 14:39 | NUR ---
pt given ativan per order. pt resting in bed, tearful about social situation and care of her dog, therapeutic communication provided. pt denies other needs at this time.
--- NOTE | 2022-12-09 15:00 | NUR ---
ROUNDED ON PT. PT REPORTS FEELING MORE RELAXED AFTER PO ATIVAN. CALL LIGHT WITHIN REACH NO FURTHER NEEDS VOICED.
[2022-12-09 16:22] VITALS: BP 162/97
--- NOTE | 2022-12-09 17:00 | NUR ---
ROUNDED ON PT. PT REPORTS NO PAIN. RESTING QUIETLY IN BED. CALL LIGHT WITHIN REACH. NO FURTHER NEEDS VOICED.
--- NOTE | 2022-12-09 18:16 | NUR ---
PT WALKING IN [place] WITH HAND DEICER ELEMENT WINDER. UP TO BATHROOM. COSME DRAIN EMPTIED AND COMPRESSED. NO LEAKING NOTED FROM COSME FOR THIS SHIFT. CALL LIGHT WITHIN REACH NO FURTHER NEEDS VOICED.
[2022-12-09 19:54] VITALS: BP 150/77
--- NOTE | 2022-12-10 04:30 | NUR ---
Pt is emotional and stressed out due to home situation with dog and freinds. Educated pt about stress management and taking care of her health post op. Pt had a episode of sharp gas pain, ambulted pt 1 lap around the unit. Kristyn and zuri helped.
[2022-12-10 04:56] VITALS: BP 154/76
--- NOTE | 2022-12-10 06:00 | NUR ---
Walked with pt around unit 2 laps. Pain better. Passing lots of gas.
--- NOTE | 2022-12-10 07:03 | NUR ---
REPORT RECEIVED FROM CADEN MENDIOLA, ALL QUESTIONS ANSWERED. PT SITTING UP AWAKE IN BED, DISCUSSED PLAN OF CARE. PT PROVIDED ICE CHIPS PER REQUEST. PT DENIES FURTHER NEEDS AT THIS TIME. CALL LIGHT IN REACH.
--- NOTE | 2022-12-10 10:12 | NUR ---
MORNING ASSESSMENT COMPLETE. PT SITTING UP IN BED, STATES HAVING SOME ANXIETY REGARDING DISCHARGE HOME AND PETS, DENIES NEED FOR INTERVENTION AT THIS TIME. MIDLINE INCISION OPEN TO AIR WITH MEG, CDI. COSME DRAIN WITH SMALL AMOUNT SEROSANG DRAINAGE. PT STATES ABD PAIN IS TOELRABLE AT THIS TIME, DENIES NEED FOR INTERVENTION. STATES SHE HAS PASSED SMALL AMOUNT OF GAS. ACTIVE BOWEL TONES. DENIES FURTHER NEEDS AT THIS TIME. CALL LIGHT IN REACH.
[2022-12-10 10:29] VITALS: BP 172/85
--- NOTE | 2022-12-10 10:32 | NUR ---
PATIENT IN BED AFTER MEAL. VITALS AND I/O'S COMPLETED. PT HAS NO OTHER REQUESTS AT THIS TIME. CALL LIGHT WITHIN REACH.
[2022-12-10 13:41] VITALS: BP 179/71
--- NOTE | 2022-12-10 15:51 | NUR ---
ASSISTED PT WHEN SHE WAS DONE IN THE SHOWER. AMBULATED WITH PATIENT IN THE HALLWAY. PATIENT BACK IN BED. CALL LIGHT WITHIN REACH. NO FURTHER NEEDS VOICED.
--- NOTE | 2022-12-10 16:20 | NUR ---
PT AMBULATED HALLWAY X2, PASSES GAS WITH AMBULATION. C/O / ABD PAIN, GIVEN PRN TYLENOL, SEE EMAR. PT DENIES FURTHER NEEDS AT THIS TIME. CALL LIGHT IN REACH.
--- NOTE | 2022-12-10 19:34 | NUR ---
Patient in bed resting, no acute distress. Respirations are even and non labored. Personal supplies and call light within reach.
--- NOTE | 2022-12-10 20:09 | NUR ---
Assisted Pt SBA from bed to bathroom and back. Gave Pt warm towel and heating packs x2. Gave Pt fresh ice water, protein shake, shannan crackers, and ice cream with RN approval. RN in room. Call light left in reach. No other needs expressed by Pt.
[2022-12-10 21:16] VITALS: BP 171/76
--- NOTE | 2022-12-11 01:15 | NUR ---
REPORT RECEIVED FROM MARLENA LE. PT RESTING IN BED SEMI-FOWLERS. EYES CLOSED, RR EVEN AND UNLABORED. NO NEEDS IDENTIFIED AT THIS TIME. CALL LIGHT IN REACH.
--- NOTE | 2022-12-11 02:26 | NUR ---
IN IV PUMP ALARMING, RESOLVED. IV ABX COMPLETE. PT SL AT THIS TIME. ASSESSMENT COMPLETE. LUNG SOUNDS CLEAR. BOWEL TONES ACTIVE. MIDLINE INCISION OPEN TO AIR. INCISION DRY NO DRAINAGE NOTED. NO REDNESS NOTED. NOT WARM TO TOUCH. ABD TENDER WITH PALPATION. PT REPORTS PASSING "SOME" GAS. COSME DRAIN TO RUQ NOTED TO HAVE SOME SEROSANGUENOUS DRAINAGE NOTED. PT REPORTS CONSTANT NUMBNESS IN BILATERAL FEET PT REPORTS IT HAS "BEEN 2 YEARS OF THAT." PT REQUESTING WARM BLANKET. WARM BLANKET PROVIDED. PT DENIES ANY OTHER NEEDS AT THIS TIME. CALL LIGHT IN REACH.
--- NOTE | 2022-12-11 04:06 | NUR ---
IN TO ADMINISTER MEDICATION, SEE MAR. IV FLUSHES WNL. PT REPORTING "DISCOMFORT" 09/21 IN ABD. PRN PAIN MEDICATION ADMINISTERED, SEE MAR. PT DENIES ANY OTHER NEEDS AT THIS TIME. CALL LIGHT IN REACH.
[2022-12-11 06:02] VITALS: BP 179/82
--- NOTE | 2022-12-11 06:24 | NUR ---
IN TO ROUND ON PT. PRN BP MEDICATION ADMINISTERED FOR BP 179/82. IV FLUSHES WNL. PRN MEDICATION ADMINISTERED, SEE MAR. PT REPORTING PAIN IN ABD 10/22 AND STATES "IT COMES AND GOES. IT IS LIKE MENSTRUAL CRAMPS." PT DENIES ANY PRN PAIN MEDICATIONS WHEN OFFERED. PT DENIES ANY OTHER NEEDS AT THIS TIME. CALL LIGHT IN REACH.
[2022-12-11 06:44] VITALS: BP 153/80
--- NOTE | 2022-12-11 07:32 | NUR ---
Report received from Nargis MENDIOLA. Patient resting in bed, A+O, reviewed plan of care, pt is agreeable. No needs at thi.s time. Call light in reach
[2022-12-11 08:40] VITALS: BP 179/84
--- NOTE | 2022-12-11 08:44 | NUR ---
Scheduled medications administered, VSS. IV ABX infusing WNL.
--- NOTE | 2022-12-11 10:39 | NUR ---
Discharge instructions provided to patient, educated regarding drain care, midline incision care, infection risk and signs, ABD binder, and chronic home medications. IV removed.
--- NOTE | 2022-12-12 07:16 | DS ---
[facility] [address] [place], [place] [address] Signed ADMISSION DATE: 12/04/2022 DISCHARGE DATE: 12/11/2022 FINAL DIAGNOSES: 1. Significant retrocecal appendicitis. 2. Hypertension. 3. Hypomagnesemia. 4. Mild alcohol-related cirrhosis. 5. Anxiety. 6. Elevated lipase, now normalized. PROCEDURE: Laparoscopic converted to an open appendectomy. 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 Apparently, she was an alcoholic and stopped drinking a little over a year ago. About just over a year ago she broke her right femur and hip and had to have her femur rodded. She moved up to [place], [place] to be with her sister. Her stepsister actually from throat cancer. Her other sister moved back down to [place] [place] to their family's ranch. Rachael has a friend who is her roommate and they plan on moving down to [facility] to be closer to their family. There she was homeless and quite destitute. Neither, she nor her friend have a car. They do have a dog. In retrospect, she had about 3-1/2 days maybe more of right lower quadrant abdominal pain. She normally takes the bus around town. She knows she can use our taxi service to her state insurance. But for some reason she does not like to do that. She was hoping to wait till Monday. She finally had to call the EMS to bring her to the ER on Monday. I got to her just before midnight. I had another surgery but had to do so she was admitted from the ER. We did her surgery that following morning. Her white count was a little elevated and her magnesium kept running low. We have replaced it every day. We also found that she has some nodularity to the liver consistent with her alcohol use in the past. Although her lab work was fairly good with an INR of 1.07, platelets of 270. Albumin 3.8, her creatinine is 1.0. She had initially been hydrated overnight and placed on cefepime and Flagyl and given some pain control. HOSPITAL COURSE: Rachael was admitted overnight and I was able to get her to the OR later that morning for laparoscopic converted to an open appendectomy for her rather significant retrocecal appendicitis. We had to mobilize the cecum and the terminal ileum and we had to very carefully separate the appendix from her cecum. I explained to Rachael she would be in the Electronically Signed By: BRADFORD VELÁZQUEZ MD 12/12/22 0716 PATIENT NAME: RACHAEL ALTAMIRANO DISCHARGE SUMMARY DATE OF : 70 REPORT #: [id number] PHYSICIAN: BRADFORD VELÁZQUEZ MD PCP: NETTE ERNST PA-C REPORT IS CONFIDENTIAL AND NOT TO BE RELEASED WITHOUT AUTHORIZATION [facility] [address] [place] [id number] Signed hospital at least 5-7 days, maybe even more. We had left her with a drain in place and it has been moderate serosanguineous until today, it is now starting to clear. Although the volume is still a little high. Consequently, we are going to leave her drain in place. Her incision is healing very nicely. We are going to remove all her mira today. Initially, she was not able to tolerate clear liquids as expected. Finally, her GI function settled down and she is now up to a regular diet without any nausea or vomiting. She has passed small amounts of flatus the last three days, but no bowel movement. However, I can see clinically she has improved each day. Her abdomen remains soft and flat. And she has been able to ambulate in the hallways. She has also been very concerned about her dog. Her neighbor actually went over and cleaned up her trailer. Her friend finally made it back in trailer taking care of the dog. She now feels more comfortable going home. She said she is very concerned that her dog which is part pit bull would jump up on her abdomen as is the dog's habit, which she wanted to have an abdominal binder just to protect the incision and the drain. At this point, she is doing well. We are going to be discharging her to home. We also had a significant amount of trouble with her blood pressure medications. We had our hospitalist service seeing her. We finally got records from her primary care provider's office and she indeed is taking the lisinopril 20 mg twice a day, not once a day. We had to add in a clonidine patch along with some as needed hydralazine. She told me she frequently forgets her lisinopril in the afternoon. I told her that is probably unwise based on what we saw here in the hospital. We have encouraged her to take it twice a day as prescribed and to follow up with her primary care provider here in about a week or so. DISCHARGE PLANS AND MEDICATIONS: Rachael is going to be discharged to home without any new prescriptions. I actually reviewed the office notes with her here in the hospital room. She understands the lisinopril to be twice a day. Her Cymbalta is long-acting and it is once a day. She has hydroxyzine at home to be taken as needed for the anxiety. 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 At this point, she really does not need them. She has been doing just fine with her ibuprofen. She already has some ibuprofen and Tylenol at home and therefore she does not need any new prescriptions and she does not need to go to the pharmacy. She is going to remove the clonidine patch on 12/14/2022 and discarded the patch. She knows that if she is constipated, she can use some Dulcolax or MiraLAX as needed for constipation. She is pretty certain her roommate has some Dulcolax already at the trailer. She has been on a regular diet and she will continue that at home. We are going to remove all her mira prior to discharge. She is going to take the abdominal binder home to be used as needed particular around her dog. I have asked her to be careful and probably have her roommate walk the dog since she is so large and we do not want her pulling at the incision. She can perform her activities of daily living including walking up and down stairs and showering bathing as usual. However, she should not do any heavy pushing, pulling, or lifting over about 20 Electronically Signed By: BRADFORD VELÁZQUEZ MD 12/12/22 0716 PATIENT NAME: RACHAEL ALTAMIRANO DISCHARGE SUMMARY DATE OF : 70 REPORT #: [id number] PHYSICIAN: BRADFORD VELÁZQUEZ MD PCP: NETTE ERNST PA-C REPORT IS CONFIDENTIAL AND NOT TO BE RELEASED WITHOUT AUTHORIZATION [facility] [address] [place] [id number] Signed pounds. She is going to come see me in the office in about 7-10 days for followup. The nurses are going to teach her to empty and record the drain output. She is going to see her primary care provider here in about a week or so for followup partly for the hypertension, but also the hypomagnesemia. She has been on magnesium oxide here in the hospital of 400 mg p.o. b.i.d. However, we are going to not fill that prescription. Currently, she needs to have that recheck by her primary care provider. I reviewed all of this with her in detail along with her hospitalist and the nurse. Rachael has expressed understanding and agrees above plan. Bradford Velázquez MD ALB/MODL /[id number] cc: MD Nette Garrett PA Copies: BRADFORD VELÁZQUEZ MD ~ Electronically Signed By: BRADFORD VELÁZQUEZ MD 12/12/22 0716 PATIENT NAME: RACHAEL ALTAMIRANO DISCHARGE SUMMARY DATE OF : 70 REPORT #: [id number] PHYSICIAN: BRADFORD VELÁZQUEZ MD PCP: NETTE ERNST PA-C REPORT IS CONFIDENTIAL AND NOT TO BE RELEASED WITHOUT AUTHORIZATION
== END 2022-12-11 11:00 | disposition home or self-care (01) | DRG 340 ==
LOC: ED 20:37 → MS 23:18
PROVIDERS: ADMIT Colon & Rectal Surgery; ATTEND Colon & Rectal Surgery
PROC: 0WJG4ZZ Inspection of Peritoneal Cavity, Percutaneous Endoscopic Approach (ICD-10-PCS; 2022-12-05)
PROC: 0DTJ0ZZ Resection of Appendix, Open Approach (ICD-10-PCS; principal; 2022-12-05 11:30)
DX: K35.32 Acute appendicitis with perforation, localized peritonitis, and gangrene, without abscess (principal); I10 Essential (primary) hypertension; E83.42 Hypomagnesemia; F41.9 Anxiety disorder, unspecified; K70.30 Alcoholic cirrhosis of liver without ascites; R74.8 Abnormal levels of other serum enzymes; F10.21 Alcohol dependence, in remission; E66.9 Obesity, unspecified; M19.90 Unspecified osteoarthritis, unspecified site; F12.90 Cannabis use, unspecified, uncomplicated; E87.6 Hypokalemia; Z87.891 Personal history of nicotine dependence; Z79.899 Other long term (current) drug therapy; Z59.00 Homelessness unspecified; Z98.890 Other specified postprocedural states; Z90.89 Acquired absence of other organs; Z68.30 Body mass index [BMI] 30.0-30.9, adult; Z79.811 Long term (current) use of aromatase inhibitors
CPT/HCPCS: 00840; 36415; 64488; 74177; 76942; 80048; 80053; 81003; 83690; 83735; 84100; 84703; 85025; 85610; 88304; 93005; 93010; 94760; 96367; 99285-25; A9270; A9270-GY; C9113; G0480; J0131; J0330; J0360; J0692; J1100; J1170; J1650; J1885; J2250; J2405; J2704; J2795; J3010; J3475; J7121

== ENCOUNTER 2024-03-01 14:27 | Emergency (ER) | payer OTHER ==
[~2024-03-01] VITALS: Ht 172.7 cm; Wt 62.3 kg
[~2024-03-01 14:27] MED LIST changes: +DULOXETINE HCL60 MG PO; +HAIR SKIN NAIL1 EACH PO; +MELATONIN5 M2 PO; +PRENATAL 19 TA1 EAC2 PO
[2024-03-01] MEDS ORDERED: SODIUM CHLORIDE 0.9% 1,000 ML IV ONE (15:00)
[2024-03-01 15:10] LABS: BASOPHILS 1.1 % (0-2); EOSINOPHILS 0.5 % (0-6); HEMOGLOBIN 13.8 g/dL (12.0-18.0); LYMPHOCYTES 39.3 % (24-44); MCH 30.5 (27-36); MCHC 34.6 g/dl (30-36); MCV 88.2 fl (81-99); MONOCYTES 8.9 % (0-12); NEUTROPHILS 50.2 % (39-80); PLATELET COUNT 235 K/uL (140-440); RBC 4.54 M/ul (4.3-5.7); RDW 13.8 (10.5-15.0)
[2024-03-01] MEDS ORDERED: OLANZapine 10 MG TABDIS PO ONE (15:30)
[2024-03-01 15:33] LABS: ACETAMINOPHEN 0 ug/mL (10-30); TSH, 3RD GENERATION 1.555 uIU/mL (0.358-3.740)
[2024-03-01 15:35] LABS: ALCOHOL, MEDICAL 367 ng/dL (<3); SALICYLATE <0.2 mg/dL (2.8-20.0)
[2024-03-01 20:48] LABS: BILIRUBIN, URINE NEGATIVE (negative); BLOOD/HGB, URINE NEGATIVE (Negative); KETONE, URINE NEGATIVE (Negative); LEUK ESTERASE, URINE NEGATIVE (negative); NITRITE, URINE NEGATIVE (negative); PH, URINE 5.5 (5-7)
[2024-03-01 21:03] LABS: AMPHETAMINES, URINE NEGATIVE (NEGATIVE); BARBITURATES, URINE NEGATIVE (NEGATIVE); BENZODIAZEPINE, URINE NEGATIVE (NEGATIVE); BUPRENORPHINE, URINE NEGATIVE (NEGATIVE); CANNABINOID, URINE NEGATIVE (NEGATIVE); COCAINE, URINE NEGATIVE (NEGATIVE); ECSTASY, URINE NEGATIVE (NEGATIVE); FENTANYL, URINE NEGATIVE (NEGATIVE); METHADONE, URINE NEGATIVE (NEGATIVE); OPIATES, URINE NEGATIVE (NEGATIVE); OXYCODONE, URINE NEGATIVE (NEGATIVE); PHENCYCLIDINE, URINE NEGATIVE (NEGATIVE)
[2024-03-02] MEDS ORDERED: HYDROCHLOROTHIA25 MG PO (08:05)
[2024-03-02] MEDS ORDERED: lisinopriL 20 MG TAB PO SCH (09:00)
[2024-03-02] MEDS ORDERED: hydroCHLOROthiazide 25 MG TAB PO SCH (09:00)
[2024-03-02 10:05] LABS: ALBUMIN 3.7 g/dL (3.4-5.0); ALBUMIN/GLOBULIN RATIO 1.19 (1.1-2.4); ALCOHOL, MEDICAL <3 ng/dL (<3); ALKALINE PHOSPHATASE 73 U/L (46-116); ALT (SGPT) 56 U/L (14-59); ANION GAP 10.1 (7-21); AST (SGOT) 38 U/L (15-37); BUN/CREATININE RATIO 23.37 (6.0-28.6); CALCIUM 8.8 mg/dL (8.5-10.1); CARBON DIOXIDE 32 mmol/L (21-32); CHLORIDE 98 mmol/L (98-107); CREATININE, SERUM 0.77 mg/dL (0.55-1.02); GLOMERULAR FILTRATION RATE,EST 92 mL/min (>60); POTASSIUM 3.1 mmol/L (3.5-5.1); PROTEIN, TOTAL 6.8 g/dL (6.4-8.2); UREA NITROGEN 18 mg/dL (7-18)
[2024-03-02 17:23] VITALS: BP 153/95
--- NOTE | 2024-03-04 07:41 | EKG ---
[facility] [address] [facility] [place] [address] Signed Normal sinus rhythm Septal infarct , age undetermined Abnormal ECG When compared with ECG of 05-DEC-2022 00:38, No significant change was found Confirmed by Mateusz Jeffrey MD ([id number]) on 03/04/2024 7:41:35 AM Electronically Signed By: MATEUSZ JEFFREY MD 03/04/24 0741 PATIENT NAME: PRIYA ALTAMIRANO LUCI Electrocardiogram DATE OF : 70 PHYSICIAN: MATEUSZ JEFFREY MD REPORT #: [id number] REPORT IS CONFIDENTIAL AND NOT TO BE RELEASED WITHOUT AUTHORIZATION
== END 2024-03-02 17:23 ==
LOC: ED 14:27
PROVIDERS: Emergency Medicine
DX: F33.9 Major depressive disorder, recurrent, unspecified (principal); F10.129 Alcohol abuse with intoxication, unspecified; M54.9 Dorsalgia, unspecified; I10 Essential (primary) hypertension; Z87.891 Personal history of nicotine dependence; Z79.899 Other long term (current) drug therapy; Z11.52 Encounter for screening for COVID-19
CPT/HCPCS: 36415; 80053; 80307; 81003; 84443; 84703; 85025; 93005; 93010; A9270; G0480; Q3014; U0002

== ENCOUNTER 2025-04-09 08:08 | Day surgery (SDC) | payer OTHER ==
[~2025-04-09] VITALS: Ht 172.7 cm; Wt 91.0 kg
[~2025-04-09 08:08] MED LIST changes: +IBLOOD GLUCOSE TEST STRIP 1 EA TEST VI PRN; +LACTATED RINGER'S 1,000 ML IV SCH; +LEXAPRO20 MG PO; +LIDOCAINE HCL 1% 5 ML SDV INJ ONE; +SEROQUEL100 MG PO
[2025-04-09 08:20] VITALS: BP 107/72
[2025-04-09] MEDS ORDERED: LIDOCAINE HCL 2% 5 ML SDV ONE (10:15)
[2025-04-09] MEDS ORDERED: fentaNYL citrate 100 MCG/2 ML VIAL ONE (10:17)
--- NOTE | 2025-04-09 10:50 | NUR ---
04/09/25 1050 Kady Villanueva 1041-PATIENT ARRIVED TO PACU ON 4L NC RR EVEN PLACED ON 2L. PATIENT REACTIVE TO VERBAL STIMULI SLIGHTY OPENING EYES. 1045-PATIENT AROUSING MOVING ALL EXTREMITIES DENIES PAIN OR NAUSEA. 2L NC 100% RR EVEN. ORIENTED TO PACU ENCOURAGED TO PASS GAS. 1050-PATIENT AWAKE ASKING QUESTIONS. IVF INFUSING. SR HR 70'S. PLACED ON RA 99% RR EVEN. DR. FLORES TALKED TO PATIENT AT BEDSIDE PATIENT PASSING GAS.
[2025-04-09 11:13] VITALS: BP 136/86
--- NOTE | 2025-04-14 15:05 | PATH ---
[facility] [address] [facility] [place] [address] Signed SPECIMEN(S): A COLON POLYP, 60 CM SPECIMEN(S): B COLON POLYP, 10 CM SPECIMEN SOURCE: A. COLON POLYP, 60 CM B. COLON POLYP, 10 CM CLINICAL HISTORY: Screening. Post colon external hemorrhoids. Diverticulosis. Colon polyps. A/B) polyps. FINAL PATHOLOGIC DIAGNOSIS: A. colon polyps, 60 cm: - Fragments of tubular adenoma. B. colon polyp, 10 cm: - Hyperplastic polyp. IRG MICROSCOPIC EXAMINATION: Histologic sections of all submitted blocks (or IHC as applicable) are digitally scanned and examined. These findings, together with the gross examination, support the pathologic diagnosis. GROSS DESCRIPTION: A. The specimen, labeled and designated "Altamirano, G, " and designated on the requisition "colon polyps, 60 cm," is received in formalin and consists of six nihcolas soft tissue fragments that measure 0.1-0.7 cm in greatest dimension. The specimen is entirely submitted in (A1). B. The specimen, labeled and designated "Latamirano, G, " and designated on the requisition "colon polyp, 10 cm," is received in formalin and consists of one nicholas soft tissue fragment that is 0.3 cm in greatest dimension. The specimen is entirely submitted in (B1). FB (under the direct supervision of a pathologist) The Gross Description was prepared using a voice recognition system. The report was reviewed for accuracy; however, sound-alike word errors, addition and/or deletions may occur. If there is any question about this report, please contact Client Services. ADDITIONAL NOTES: Immunohistochemical and/or in situ hybridization studies if performed in this case included appropriate positive controls that reacted as expected. This PATIENT NAME: PRIYA ALTAMIRANO PATHOLOGY DATE OF : 70 REPORT #: [id number] PHYSICIAN: LIDA PATHOLOGY PCP: PRIYA HANNON MD REPORT IS CONFIDENTIAL AND NOT TO BE RELEASED WITHOUT AUTHORIZATION [facility] [address] [place], [place] [address], [place] [address] Signed test was developed and its performance characteristics determined by [facility]. It has not been cleared or approved by the U.S. Food and Drug Administration. The FDA has determined that such clearance or approval is not necessary. This test is used for clinical purposes. It should not be regarded as investigational or for research. [facility] is certified under the Clinical Laboratory Improvement Amendments of 1988 (CLIA) as qualified to perform high complexity clinical laboratory testing. PERFORMING LABORATORY: Technical component was performed by [facility], [address] [place] [id number] (CLIA# [id number]). Professional interpretation was performed by [facility], [address] [place] [id number] (CLIA#: [id number]). Diagnostician: Stanley Rodriguez MD Pathologist Electronically Signed 04/14/2025 Copies: ~ PATIENT NAME: PRIYA ALTAMIRANO PATHOLOGY DATE OF : 70 REPORT #: [id number] PHYSICIAN: ILDA WALDRON PCP: PRIYA HANNON MD REPORT IS CONFIDENTIAL AND NOT TO BE RELEASED WITHOUT AUTHORIZATION
== END 2025-04-09 11:20 | disposition home or self-care (01) ==
LOC: OPS 08:08 → DS 08:08 → OPS 09:30 → DS 09:30 → OPS 11:20
PROVIDERS: ATTEND Surgery
PROC: 0DBP8ZX Excision of Rectum, Via Natural or Artificial Opening Endoscopic, Diagnostic (ICD-10-PCS; 2025-04-09)
PROC: 0DBM8ZX Excision of Descending Colon, Via Natural or Artificial Opening Endoscopic, Diagnostic (ICD-10-PCS; principal; 2025-04-09 09:30)
DX: Z12.11 Encounter for screening for malignant neoplasm of colon (principal); D12.4 Benign neoplasm of descending colon; K62.1 Rectal polyp; K57.30 Diverticulosis of large intestine without perforation or abscess without bleeding; K64.8 Other hemorrhoids; K64.4 Residual hemorrhoidal skin tags; F33.9 Major depressive disorder, recurrent, unspecified; Z79.899 Other long term (current) drug therapy; Z90.49 Acquired absence of other specified parts of digestive tract
CPT/HCPCS: 00811; 88305; J2003; J2704; J3010; J7121